=== PATIENT | female | born 1935 | race Caucasian/White ===

== ENCOUNTER 2019-02-15 17:48 | Emergency (ER) | payer MEDICARE ==
[~2019-02-15] VITALS: Ht 160 cm; Wt 77.1 kg
[2019-02-15 17:51] VITALS: BP 137/84
--- NOTE | 2019-02-15 17:51 | NUR ---
ED Nurse Note: pt presents to ED c/o generalized weakness via EMS. pt reports being in the garden watching her grandson play basketball when she started feeling weak and lethargic. pt also states that she feels nauseous with movement but that when she lies and rests, her symptoms seem to improve. pt denies any urinary symptoms or ever having felt this way before
[2019-02-15] MEDS ORDERED: LISINOPRIL5 MG ORAL (17:52)
[2019-02-15] MEDS ORDERED: ATORVASTATIN CA20 MG ORAL (17:52)
[2019-02-15] MEDS ORDERED: Metoclopramide 10mg/2ml Inj IVP ONE (18:15)
--- NOTE | 2019-02-15 19:00 | Diagnostic Imaging Report ---
Indications: Headache Technique: Spiral acquisitions obtained through the brain. Angled axial and coronal 5 x 5 mm slices were reconstructed. Total dose length product 1413 mGycm. CTDI vol(s) 62 mGy. Dose reduction achieved using automated exposure control Comparison: None. Findings: There is mild age-related enlargement of the ventricles and extra axial CSF spaces. There is periventricular deep white matter low-attenuation consistent with chronic microvascular ischemic change. No acute intracranial hemorrhage or edema. No mass effect nor midline shift. Visualized orbits and sinuses are unremarkable. The calvarium is intact. The mastoids are clear. Impression: Mild chronic age-related changes Negative for acute intracranial bleed or mass effect This agrees with the preliminary interpretation provided overnight by [facility]. The CT scanner at [facility] is accredited by the [employer] and the scans are performed using protocols designed to limit radiation exposure to as low as reasonably achievable to attain images of sufficient resolution adequate for diagnostic evaluation.
[2019-02-15 19:06] LABS: ANION GAP 12 mmol/L (5-15); BLOOD UREA NITROGEN 21 mg/dL (7-18); CALCIUM 9.7 MG/DL (8.5-10.1); CARBON DIOXIDE 27 MMOL/L (21-32); CHLORIDE 104 MMOL/L (98-107); CREATININE 1.1 MG/DL (0.55-1.30); SODIUM 143 MMOL/L (136-145)
[2019-02-15 19:10] LABS: ALANINE AMINOTRANSFERASE 28 U/L (12-78); ALBUMIN 4.3 G/DL (3.4-5.0); ALBUMIN/GLOBULIN RATIO 1.2 (1.0-2.7); ALKALINE PHOSPHATASE 51 U/L (46-116); ASPARTATE AMINO TRANSFERASE 28 U/L (15-37); BILIRUBIN,TOTAL 0.4 MG/DL (0.2-1.0)
[2019-02-15 19:14] LABS: BASOPHILS % (AUTO) 1.2 % (0.0-2.0); EOSINOPHILS % (AUTO) 2.2 % (0.0-3.0); HEMATOCRIT 47.6 % (37.0-47.0); HEMOGLOBIN 16.1 G/DL (12.0-16.0); LYMPHOCYTES % (AUTO) 25.8 % (20.0-45.0); MEAN CORPUSCULAR VOLUME 98 FL (80-99); MONOCYTES % (AUTO) 7.1 % (1.0-10.0); NEUTROPHILS % (AUTO) 63.7 % (45.0-75.0); PLATELET COUNT 237 K/UL (150-450); RED BLOOD COUNT 4.84 M/UL (4.20-5.40); RED CELL DISTRIBUTION WIDTH 11.1 % (11.6-14.8); WHITE BLOOD COUNT 9.1 K/UL (4.8-10.8)
--- NOTE | 2019-02-15 19:15 | NUR ---
ED Nurse Note: Handoff from RN - patient complaining of nausea no pain. IV fluids in progress awaiting review
--- NOTE | 2019-02-15 19:16 | NUR ---
ED Nurse Note: Handover from RN. Patient on monitor in gown. Complaining of nausea, no pain. Awaiting urine sample. Son present at bedside.
--- NOTE | 2019-02-15 19:28 | NUR ---
HAND-OFF: Report given to Katya SHARP.
[2019-02-15 21:07] VITALS: BP 130/59
--- NOTE | 2019-02-15 21:12 | NUR ---
ED Nurse Note: IV fluids now completed. Patient states nausea feels improved. Patient taking sips of water. Mobilised to bathroom, unabler to obtain urine sample but patient voided. Patient to be admitted.
--- NOTE | 2019-02-15 22:11 | Emergency Room Report ---
History of Present Illness General Chief Complaint: Generalized Weakness Source: Patient Present Illness HPI 83-year-old female presents ED for evaluation. Brought in by EMS from home. Patient states that she was playing outside with her grandchild when she started to feel weak and "not right". States she went inside and she threw up. Son called 911. Upon arrival patient states she feels generally weak. Denies any dizziness. Denies any headache. Denies abdominal pain. Denies chest pain or shortness of breath. Denies slurred speech or facial droop. No other aggravating relieving factors. Denies any other associated symptoms Allergies: Coded Allergies: No Known Allergies (Unverified , 02/15/19) Patient History Past Medical History: none Past Surgical History: none Pertinent Family History: none Social History: Denies: smoking, alcohol use, drug use Now: No Immunizations: UTD Reviewed Nursing Documentation: PMH: Agreed; PSxH: Agreed Nursing Documentation-PMH Past Medical History: No History, Except For Hx Hypertension: Yes - high cholesterol Review of Systems All Other Systems: negative except mentioned in HPI Physical Exam Vital Signs Date Time Temp Pulse Resp B/P (MAP) Pulse Ox O2 Delivery O2 Flow Rate FiO2 02/15/19 17:50 98.1 88 16 137/84 (101) 99 Room Air Sp02 EP Interpretation: reviewed, normal General Appearance: no apparent distress, alert, GCS 15, non-toxic Head: normocephalic, atraumatic Eyes: bilateral eye normal inspection, bilateral eye PERRL ENT: hearing grossly normal, normal pharynx, no angioedema, normal voice Neck: full range of motion, supple/symm/no masses Respiratory: chest non-tender, lungs clear, normal breath sounds, speaking full sentences Cardiovascular #1: regular rate, rhythm, no edema Cardiovascular #2: 2+ carotid (R), 2+ carotid (L), 2+ radial (R), 2+ radial (L) , 2+ dorsalis pedis (R), 2+ dorsalis pedis (L) Gastrointestinal: normal bowel sounds, non tender, soft, non-distended, no guarding, no rebound Rectal: deferred Genitourinary: normal inspection, no CVA tenderness Musculoskeletal: back normal, gait/station normal, normal range of motion, non- tender Neurologic: alert, oriented x3, responsive, motor strength/tone normal, sensory intact, speech normal Psychiatric: judgement/insight normal, memory normal, mood/affect normal, no suicidal/homicidal ideation Reflexes: 3+ bicep (R), 3+ bicep (L), 3+ tricep (R), 3+ tricep (L), 3+ knee (R) , 3+ knee (L) Lymphatic: no adenopathy Medical Decision Making Diagnostic Impression: Primary Impression: Episode of generalized weakness Additional Impression: Unsteady gait ER Course Hospital Course 83 yo F presents to ED c/o weakness, vomitng Differential diagnoses include: ND/unstable angina, arrythmia, dehydration, CVA/ TIA Clinical course Patient placed on stretcher. on threat monitoring analyst. After initial history and physical I ordered labs, EKG, chest x-ray, IVFs, CT Brain labs reviewed- no leukocytosis, hemoglobin/hematocrit ok, electrolytes okay, troponins negative EKG- NSR no acute ischemic changes interpreted by me CT brain-unremarkable Patient states she feels somewhat better but remains weak and has a hard time ambulating in ED. Given age and comorbidities I do not believe is safe to discharge patient at this time Because of insurance patient will be transferred to [facility]. I feel this is a highly complex case requiring extensive working including EKG/Rhythm strip, Xray/CT/US, Blood/urine lab work, repeat exams while in ED, and administration of strong opiates/narcotics for pain control, admission to hospital or close patient follow up. Diagnosis - episode of generalized weakness, usnteady gait transferred in serious condition Labs Test 02/15/19 18:47 White Blood Count 9.1 K/UL (4.8-10.8) Red Blood Count 4.84 M/UL (4.20-5.40) Hemoglobin 16.1 G/DL (12.0-16.0) Hematocrit 47.6 % (37.0-47.0) Mean Corpuscular Volume 98 FL (80-99) Mean Corpuscular Hemoglobin 33.3 PG (27.0-31.0) Mean Corpuscular Hemoglobin Concent 33.8 G/DL (32.0-36.0) Red Cell Distribution Width 11.1 % (11.6-14.8) Platelet Count 237 K/UL (150-450) Mean Platelet Volume 5.5 FL (6.5-10.1) Neutrophils (%) (Auto) 63.7 % (45.0-75.0) Lymphocytes (%) (Auto) 25.8 % (20.0-45.0) Monocytes (%) (Auto) 7.1 % (1.0-10.0) Eosinophils (%) (Auto) 2.2 % (0.0-3.0) Basophils (%) (Auto) 1.2 % (0.0-2.0) Sodium Level 143 MMOL/L (136-145) Potassium Level 4.0 MMOL/L (3.5-5.1) Chloride Level 104 MMOL/L (98-107) Carbon Dioxide Level 27 MMOL/L (21-32) Anion Gap 12 mmol/L (5-15) Blood Urea Nitrogen 21 mg/dL (7-18) Creatinine 1.1 MG/DL (0.55-1.30) Estimat Glomerular Filtration Rate mL/min (>60) Glucose Level 99 MG/DL (74-106) Calcium Level 9.7 MG/DL (8.5-10.1) Total Bilirubin 0.4 MG/DL (0.2-1.0) Aspartate Amino Transf (AST/SGOT) 28 U/L (15-37) Alanine Aminotransferase (ALT/SGPT) 28 U/L (12-78) Alkaline Phosphatase 51 U/L (46-116) Troponin I 0.000 ng/mL (0.000-0.056) Total Protein 8.0 G/DL (6.4-8.2) Albumin 4.3 G/DL (3.4-5.0) Globulin 3.7 g/dL Albumin/Globulin Ratio 1.2 (1.0-2.7) Lipase 98 U/L (73-393) EKG Diagnostic Results Rate: normal Rhythm: NSR ST Segments: no acute changes ASA given to the pt in ED: No Rhythm Strip Diag. Results EP Interpretation: yes Rhythm: NSR, no PVC's, no ectopy CT/MRI/US Diagnostic Results CT/MRI/US Diagnostic Results : Imaging Test Ordered: CT Head Impression Impression: -No acute intracranial abnormality. -Chronic senescent findings as follows: parenchymal volume loss, nonspecific white matter hypoattenuation likely secondary to chronic microvascular ischemia, cerebrovascular ASVD. -Otherwise unremarkable study. Last Vital Signs Date Time Temp Pulse Resp B/P (MAP) Pulse Ox O2 Delivery O2 Flow Rate FiO2 02/15/19 21:07 98.5 75 18 130/59 98 Room Air Status: improved Disposition: XFER S[facility]-TRM HOSP Condition: Serious Referrals: [facility] (PCP) Sudarshan Dietz MD Feb 15, 2019 22:11
--- NOTE | 2019-02-15 22:35 | NUR ---
ED Nurse Note: report given to LILA Garvin from [facility].
--- NOTE | 2019-02-15 22:38 | NUR ---
ED Nurse Note: PT ASSISTED TO RESTROOM, STEADY GAIT NOTED W/ MINIMAL ASSIT BUT PT CONTINUE TO REPORT DIZZINESS.
[2019-02-15 22:40] VITALS: BP 132/88
--- NOTE | 2019-02-15 22:40 | NUR ---
ED Nurse Note: pt transferred to [facility], report given and care endorsed to EMS staff from [facility], pt vss, iv intact and patent, fluid running, no neuro changes, all belongings left w/ pt.
--- NOTE | 2019-02-16 14:03 | Cardiology Report ---
APPROVED REPORT EKG Measurement Heart [id number] Normal sinus rhythm Normal ECG
== END 2019-02-15 22:40 | disposition short-term general hospital (02) ==
LOC: EDBD 17:48 → EMR 19:42
DX: R53.1 Weakness (principal); R26.81 Unsteadiness on feet; E78.00 Pure hypercholesterolemia, unspecified; R51 Headache
CPT/HCPCS: 36415; 70450; 80053; 83690; 84484; 85025; 93005; 96361; 96374; 96375; 99285; J2765; S0028